=== PATIENT | male | born 1960 | race Caucasian/White ===

== ENCOUNTER 2021-07-12 10:26 | Inpatient (IN) | payer MEDICAID, OTHER ==
[~2021-07-12] VITALS: Ht 167.6 cm; Wt 83.9 kg
[2021-07-12] MEDS ORDERED: ACETAMINOPHEN 325MG TABLET PO STA (10:54)
[2021-07-12] MEDS ORDERED: VANCOMYCIN 1G PREMIX 200 ML IV ONE (11:00)
[2021-07-12] MEDS ORDERED: PIPERACILLIN/TAZ 3.375G PREMIX 50 ML IV ONE (11:00)
[2021-07-12] MEDS ORDERED: SODIUM CHLORIDE 0.9% 1000ML BAG (SEPSIS BOLUS) IV ONE (11:00)
[2021-07-12 11:33] LABS: BASOPHILS % 0.5 % (0.0-2.0); EOSINOPHILS % 1.5 % (0.0-5.0); HEMATOCRIT. 28.6 % (42.0-52.0); HEMOGLOBIN. 8.5 g/dL (14.0-18.0); LYMPHOCYTES % 9.1 % (20.0-50.0); MEAN CORPUSCULAR HEMOGLOBIN 27.7 pg (28.0-32.0); MEAN CORPUSCULAR VOLUME 92.9 fL (80.0-94.0); MEAN PLATELET VOLUME 7.5 fl (7.4-10.4); MONOCYTES % 5.7 % (2.0-8.0); NEUTROPHILS % 83.2 % (40.0-76.0); PLATELET 451 x1000/uL (130-400); RED BLOOD CELL COUNT 3.08 mill/uL (4.7-6.1); RED CELL DISTRIBUTION WIDTH 16.6 % (11.6-14.6)
[2021-07-12 11:42] LABS: INR 1.1; PROTHROMBIN TIME 11.5 sec (9.6-11.0)
[2021-07-12 11:47] LABS: CHLORIDE 103 mEq/L (98-107)
[2021-07-12] MEDS ORDERED: HYDROCODONE/ACETAMINOPHEN 5/325MG TABLET PO PRN (14:15)
[2021-07-12] MEDS ORDERED: ACETAMINOPHEN 325MG TABLET PO PRN ×2 (14:15)
[2021-07-12] MEDS ORDERED: ONDANSETRON HCL 4MG/2ML INJ IV PRN (14:15)
[2021-07-12] MEDS ORDERED: GUAIFENESIN 200MG/10ML SUGAR FREE UDC PO PRN (14:15)
[2021-07-12] MEDS ORDERED: MAGNESIUM/ALUMINUM HYDROXIDE/SIMETHICONE 30ML UDC PO PRN (14:15)
[2021-07-12] MEDS ORDERED: NALOXONE HCL 0.4MG/ML VIAL IV PRN (14:30)
[2021-07-12] MEDS ORDERED: VANCOMYCIN 1G PREMIX 200 ML IV NR (15:00)
[2021-07-12] MEDS: ENOXAPARIN 30MG/0.3ML SYR SUBCUT SCH (15:04)
[2021-07-12 16:11] LABS: HEPATITIS B SURFACE ANTIGEN NEGATIVE
[2021-07-12 16:40] VITALS: BP 126/66
[2021-07-12 19:23] VITALS: BP 126/66
[2021-07-12 20:00] VITALS: BP 142/78
[2021-07-12] MEDS ORDERED: VANCOMYCIN 750MG PMX (XELLIA) 150 ML IV NR (20:00)
[2021-07-12] MEDS ORDERED: PIPERACILLIN/TAZOBACTAM 2.25 G in DEXTROSE 5% WATER 50 ML IV SCH (21:00)
[2021-07-12] MEDS ORDERED: PIPERACILLIN/TAZOBACTAM 3.375 G in DEXTROSE 5% WATER 50 ML IV SCH (21:00)
[2021-07-12] MEDS: PIPERACILLIN/TAZOBACTAM 3.375 G in DEXTROSE 5% WATER 50 ML IV SCH (21:12)
[2021-07-13] VITALS: BP 139/72
[2021-07-13 04:00] VITALS: BP 119/59
[2021-07-13 08:00] VITALS: BP 125/66
[2021-07-13 08:45] LABS: BASOPHILS % 0.5 % (0.0-2.0); EOSINOPHILS % 2.7 % (0.0-5.0); HEMATOCRIT. 25.3 % (42.0-52.0); HEMOGLOBIN. 7.9 g/dL (14.0-18.0); LYMPHOCYTES % 8.1 % (20.0-50.0); MEAN CORPUSCULAR HEMOGLOBIN 28.4 pg (28.0-32.0); MEAN PLATELET VOLUME 7.3 fl (7.4-10.4); MONOCYTES % 6.2 % (2.0-8.0); NEUTROPHILS % 82.5 % (40.0-76.0); PLATELET 445 x1000/uL (130-400); RED BLOOD CELL COUNT 2.78 mill/uL (4.7-6.1); RED CELL DISTRIBUTION WIDTH 16.6 % (11.6-14.6)
[2021-07-13] MEDS: PIPERACILLIN/TAZOBACTAM 3.375 G in DEXTROSE 5% WATER 50 ML IV SCH ×2 (11:13→21:27)
[2021-07-13 12:00] VITALS: BP 118/62
[2021-07-13] MEDS: ENOXAPARIN 30MG/0.3ML SYR SUBCUT SCH (14:35)
[2021-07-13 16:00] VITALS: BP 114/52
[2021-07-13 20:00] VITALS: BP 141/68
[2021-07-13] MEDS: EPOETIN ALFA-EPBX 10,000 UNIT/ML VIAL SUBCUT SCH (21:28)
[2021-07-14] VITALS: BP 138/62
[2021-07-14 08:00] VITALS: BP 122/60
[2021-07-14 08:00] LABS: BASOPHILS % 0.5 % (0.0-2.0); EOSINOPHILS % 2.3 % (0.0-5.0); HEMATOCRIT. 25.2 % (42.0-52.0); HEMOGLOBIN. 7.6 g/dL (14.0-18.0); LYMPHOCYTES % 9.1 % (20.0-50.0); MEAN CORPUSCULAR HEMOGLOBIN 27.7 pg (28.0-32.0); MEAN CORPUSCULAR VOLUME 92.2 fL (80.0-94.0); MEAN PLATELET VOLUME 7.1 fl (7.4-10.4); MONOCYTES % 6.8 % (2.0-8.0); NEUTROPHILS % 81.3 % (40.0-76.0); PLATELET 425 x1000/uL (130-400); RED BLOOD CELL COUNT 2.73 mill/uL (4.7-6.1); RED CELL DISTRIBUTION WIDTH 16.3 % (11.6-14.6)
[2021-07-14 08:14] LABS: PHOSPHORUS 5.6 mg/dL (2.5-4.9)
[2021-07-14] MEDS: PIPERACILLIN/TAZOBACTAM 3.375 G in DEXTROSE 5% WATER 50 ML IV SCH ×2 (09:44→22:52)
[2021-07-14 12:00] VITALS: BP 137/71
[2021-07-14] MEDS: ENOXAPARIN 30MG/0.3ML SYR SUBCUT SCH (15:00)
[2021-07-14 16:00] VITALS: BP 129/50
[2021-07-14 20:00] VITALS: BP 117/46
[2021-07-15] VITALS: BP 120/52
[2021-07-15 04:00] VITALS: BP 122/52
[2021-07-15] MEDS ORDERED: LIDOCAINE HCL 1% 20ML VIAL (Pyxis) INJ ONE (06:53)
[2021-07-15] MEDS ORDERED: POLYMYXIN B SULFATE 500000 UNITS/VIAL ONE (06:53)
[2021-07-15] MEDS ORDERED: BACITRACIN 15GM TUBE TOP ONE (06:54)
[2021-07-15] MEDS ORDERED: BUPIVACAINE HCL/PF 0.5% (5MG/ML) 10ML ONE (06:54)
[2021-07-15] MEDS ORDERED: GENTAMICIN SULF 40MG/ML 2ML VIAL ONE (06:54)
[2021-07-15 07:57] LABS: BASOPHILS % 0.7 % (0.0-2.0); EOSINOPHILS % 3.2 % (0.0-5.0); HEMATOCRIT. 26.9 % (42.0-52.0); HEMOGLOBIN. 8.2 g/dL (14.0-18.0); LYMPHOCYTES % 11.8 % (20.0-50.0); MEAN CORPUSCULAR HEMOGLOBIN 27.8 pg (28.0-32.0); MEAN CORPUSCULAR VOLUME 91.7 fL (80.0-94.0); MONOCYTES % 8.3 % (2.0-8.0); PLATELET 401 x1000/uL (130-400); RED BLOOD CELL COUNT 2.94 mill/uL (4.7-6.1); RED CELL DISTRIBUTION WIDTH 16.6 % (11.6-14.6)
[2021-07-15 07:58] LABS: INR 1.1; PROTHROMBIN TIME 11.6 sec (9.6-11.0)
[2021-07-15 08:00] VITALS: BP 148/48
[2021-07-15 08:44] LABS: PHOSPHORUS 6.7 mg/dL (2.5-4.9)
[2021-07-15] MEDS: PIPERACILLIN/TAZOBACTAM 3.375 G in DEXTROSE 5% WATER 50 ML IV SCH ×2 (09:00→21:53)
[2021-07-15] MEDS ORDERED: HYDROMORPHONE HCL/PF 2MG/ML CPJ ONE (10:43)
[2021-07-15] MEDS ORDERED: MIDAZOLAM HCL 5 MG/5 ML VIAL ONE ×2 (10:44→11:09)
[2021-07-15] MEDS ORDERED: CLINDAMYCIN 900 MG PREMIX 50 ML IV ONE (11:07)
[2021-07-15 13:29] LABS: HEMATOCRIT 24.1 % (42.0-52.0)
[2021-07-15 13:47] LABS: HEMOGLOBIN 6.6 g/dL (14.0-18.0)
[2021-07-15] MEDS: ENOXAPARIN 30MG/0.3ML SYR SUBCUT SCH (15:00)
[2021-07-15 20:00] VITALS: BP 133/66
[2021-07-15 20:44] LABS: HEMATOCRIT 26.7 % (42.0-52.0); HEMOGLOBIN 8.3 g/dL (14.0-18.0)
[2021-07-16] VITALS: BP 135/72
[2021-07-16 08:00] VITALS: BP 142/75
[2021-07-16] MEDS: PIPERACILLIN/TAZOBACTAM 3.375 G in DEXTROSE 5% WATER 50 ML IV SCH ×2 (10:06→22:33)
[2021-07-16 12:00] VITALS: BP 123/64
[2021-07-16] MEDS: ENOXAPARIN 30MG/0.3ML SYR SUBCUT SCH (15:37)
[2021-07-16 16:00] VITALS: BP 111/92
[2021-07-16] MEDS ORDERED: VANCOMYCIN 750 MG in DEXT 5% WATER 250 ML IV NR (18:00)
[2021-07-16 20:00] VITALS: BP_SYST 110; BP_SYST 143; BP_DIAS 35; BP_DIAS 51
[2021-07-16] MEDS: EPOETIN ALFA-EPBX 10,000 UNIT/ML VIAL SUBCUT SCH (22:32)
[2021-07-16] MEDS: CEFTRIAXONE 1,000 MG in DEXTROSE 5% WATER 50 ML IV SCH (23:44)
[2021-07-17] VITALS: BP 110/51
[2021-07-17 04:00] VITALS: BP 141/78
[2021-07-17 08:00] VITALS: BP 133/56
[2021-07-17 11:59] LABS: BASOPHILS % 0.8 % (0.0-2.0); EOSINOPHILS % 5.7 % (0.0-5.0); HEMATOCRIT. 24.8 % (42.0-52.0); HEMOGLOBIN. 7.8 g/dL (14.0-18.0); LYMPHOCYTES % 16.7 % (20.0-50.0); MEAN CORPUSCULAR HEMOGLOBIN 27.8 pg (28.0-32.0); MEAN CORPUSCULAR VOLUME 88.2 fL (80.0-94.0); MEAN PLATELET VOLUME 7.1 fl (7.4-10.4); MONOCYTES % 6.3 % (2.0-8.0); NEUTROPHILS % 70.5 % (40.0-76.0); PLATELET 400 x1000/uL (130-400); RED BLOOD CELL COUNT 2.81 mill/uL (4.7-6.1); RED CELL DISTRIBUTION WIDTH 17.5 % (11.6-14.6)
[2021-07-17 12:00] VITALS: BP 136/43
[2021-07-17 16:00] VITALS: BP 144/48
[2021-07-17] MEDS: ENOXAPARIN 30MG/0.3ML SYR SUBCUT SCH (16:24)
[2021-07-17 16:40] LABS: HEPATITIS B SURFACE ANTIGEN NEGATIVE
[2021-07-17 20:00] VITALS: BP 150/47
[2021-07-17] MEDS: CEFTRIAXONE 1,000 MG in DEXTROSE 5% WATER 50 ML IV SCH (22:42)
[2021-07-18] VITALS: BP 132/69
[2021-07-18 04:00] VITALS: BP 138/74
[2021-07-18 08:00] VITALS: BP 160/86
[2021-07-18 12:00] VITALS: BP 150/90
[2021-07-18] MEDS ORDERED: VANCOMYCIN 750MG PMX (XELLIA) 150 ML IV NR (12:00)
[2021-07-18] MEDS ORDERED: VANCOMYCIN 750 MG in DEXT 5% WATER 250 ML IV NR (12:00)
[2021-07-18] MEDS ORDERED: VANCOMYCIN 750MG PREMIX 150 ML IV NR (12:27)
[2021-07-18] MEDS: ENOXAPARIN 30MG/0.3ML SYR SUBCUT SCH (15:11)
[2021-07-18 16:00] VITALS: BP 141/79
[2021-07-18 20:00] VITALS: BP 112/51
[2021-07-18] MEDS: CEFTRIAXONE 1,000 MG in DEXTROSE 5% WATER 50 ML IV SCH (22:51)
[2021-07-18] MEDS: EPOETIN ALFA-EPBX 10,000 UNIT/ML VIAL SUBCUT SCH (22:51)
[2021-07-19] VITALS: BP 163/88
[2021-07-19 04:00] VITALS: BP 141/69
[2021-07-19 07:35] LABS: BASOPHILS % 0.6 % (0.0-2.0); EOSINOPHILS % 7.1 % (0.0-5.0); HEMATOCRIT. 25.6 % (42.0-52.0); MEAN CORPUSCULAR HEMOGLOBIN 27.9 pg (28.0-32.0); MEAN CORPUSCULAR VOLUME 89.8 fL (80.0-94.0); MONOCYTES % 7.7 % (2.0-8.0); NEUTROPHILS % 66.6 % (40.0-76.0); PLATELET 434 x1000/uL (130-400); RED BLOOD CELL COUNT 2.86 mill/uL (4.7-6.1); RED CELL DISTRIBUTION WIDTH 17.6 % (11.6-14.6)
[2021-07-19 08:00] VITALS: BP 143/50
[2021-07-19 12:00] VITALS: BP 122/84
[2021-07-19] MEDS: ENOXAPARIN 30MG/0.3ML SYR SUBCUT SCH (15:13)
[2021-07-19 16:00] VITALS: BP 149/74
[2021-07-19 20:00] VITALS: BP 154/88
[2021-07-19] MEDS: CEFTRIAXONE 1,000 MG in DEXTROSE 5% WATER 50 ML IV SCH (23:46)
[2021-07-20] VITALS: BP 155/95
[2021-07-20 04:00] VITALS: BP 145/92
[2021-07-20 07:43] LABS: BASOPHILS % 1.2 % (0.0-2.0); EOSINOPHILS % 7.3 % (0.0-5.0); HEMATOCRIT. 23.4 % (42.0-52.0); HEMOGLOBIN. 7.4 g/dL (14.0-18.0); LYMPHOCYTES % 18.8 % (20.0-50.0); MEAN CORPUSCULAR HEMOGLOBIN 28.3 pg (28.0-32.0); MEAN CORPUSCULAR VOLUME 89.1 fL (80.0-94.0); MEAN PLATELET VOLUME 6.6 fl (7.4-10.4); MONOCYTES % 6.2 % (2.0-8.0); NEUTROPHILS % 66.5 % (40.0-76.0); PLATELET 420 x1000/uL (130-400); RED BLOOD CELL COUNT 2.63 mill/uL (4.7-6.1); RED CELL DISTRIBUTION WIDTH 17.4 % (11.6-14.6)
[2021-07-20 08:00] VITALS: BP 121/34
[2021-07-20 09:23] LABS: PHOSPHORUS 8.2 mg/dL (2.5-4.9)
[2021-07-20 12:00] VITALS: BP 157/85
[2021-07-20 16:00] VITALS: BP 162/76
[2021-07-20 16:42] LABS: HEPATITIS B SURFACE ANTIGEN NEGATIVE
[2021-07-20] MEDS: ENOXAPARIN 30MG/0.3ML SYR SUBCUT SCH (16:43)
[2021-07-20] MEDS: EPOETIN ALFA 10000UNITS/ML VIAL SUBCUT SCH (21:58)
[2021-07-20] MEDS: CEFTRIAXONE 1,000 MG in DEXTROSE 5% WATER 50 ML IV SCH (23:22)
[2021-07-21] VITALS: BP 122/58
[2021-07-21 04:00] VITALS: BP 166/91
[2021-07-21 08:00] VITALS: BP 153/71
[2021-07-21 10:25] LABS: HEMATOCRIT. 26.5 % (42.0-52.0); HEMOGLOBIN. 8.2 g/dL (14.0-18.0); LYMPHOCYTES % 18.9 % (20.0-50.0); MEAN CORPUSCULAR HEMOGLOBIN 29.2 pg (28.0-32.0); MEAN CORPUSCULAR VOLUME 94.3 fL (80.0-94.0); MEAN PLATELET VOLUME 6.7 fl (7.4-10.4); MONOCYTES % 6.2 % (2.0-8.0); NEUTROPHILS % 66.9 % (40.0-76.0); PLATELET 347 x1000/uL (130-400)
[2021-07-21 10:50] LABS: PHOSPHORUS 6.8 mg/dL (2.5-4.9)
[2021-07-21 12:00] VITALS: BP 140/47
[2021-07-21] MEDS: ENOXAPARIN 30MG/0.3ML SYR SUBCUT SCH (15:42)
[2021-07-21 16:00] VITALS: BP 154/80
[2021-07-21] MEDS: CEFTRIAXONE 1,000 MG in DEXTROSE 5% WATER 50 ML IV SCH (22:31)
[2021-07-22] VITALS: BP 158/83
[2021-07-22 04:00] VITALS: BP 152/72
[2021-07-22 08:00] VITALS: BP 174/102
[2021-07-22] MEDS: CLONIDINE 0.1MG TABLET PO PRN (08:44)
[2021-07-22 12:00] VITALS: BP 142/98
[2021-07-22] MEDS: ENOXAPARIN 30MG/0.3ML SYR SUBCUT SCH ×3 (15:00→15:36)
[2021-07-22 16:50] VITALS: BP 134/66
[2021-07-22 20:00] VITALS: BP 166/92
[2021-07-23] VITALS: BP 169/85
[2021-07-23 04:00] VITALS: BP 160/80
[2021-07-23 05:33] LABS: BASOPHILS % 0.8 % (0.0-2.0); EOSINOPHILS % 7.6 % (0.0-5.0); HEMATOCRIT. 24.8 % (42.0-52.0); HEMOGLOBIN. 7.7 g/dL (14.0-18.0); LYMPHOCYTES % 21.6 % (20.0-50.0); MEAN CORPUSCULAR HEMOGLOBIN 27.7 pg (28.0-32.0); MEAN CORPUSCULAR VOLUME 89.8 fL (80.0-94.0); MEAN PLATELET VOLUME 6.9 fl (7.4-10.4); MONOCYTES % 6.4 % (2.0-8.0); NEUTROPHILS % 63.6 % (40.0-76.0); PLATELET 359 x1000/uL (130-400); RED BLOOD CELL COUNT 2.77 mill/uL (4.7-6.1); RED CELL DISTRIBUTION WIDTH 17.8 % (11.6-14.6)
[2021-07-23 08:00] VITALS: BP 160/90
[2021-07-23 12:00] VITALS: BP 160/89
[2021-07-23 16:00] VITALS: BP 153/83
[2021-07-23] MEDS: ENOXAPARIN 30MG/0.3ML SYR SUBCUT SCH (16:40)
[2021-07-23] MEDS: AMLODIPINE 2.5MG TABLET PO SCH (17:02)
[2021-07-23 20:00] VITALS: BP 141/75
[2021-07-23] MEDS: EPOETIN ALFA 10000UNITS/ML VIAL SUBCUT SCH (22:30)
[2021-07-23] MEDS: CLONIDINE 0.1MG TABLET PO PRN (23:49)
[2021-07-24] VITALS: BP 173/71
[2021-07-24 04:00] VITALS: BP 164/89
[2021-07-24 06:50] LABS: BASOPHILS % 0.9 % (0.0-2.0); EOSINOPHILS % 8.1 % (0.0-5.0); HEMATOCRIT. 25.5 % (42.0-52.0); LYMPHOCYTES % 22.4 % (20.0-50.0); MEAN CORPUSCULAR HEMOGLOBIN 28.4 pg (28.0-32.0); MEAN CORPUSCULAR VOLUME 90.1 fL (80.0-94.0); MEAN PLATELET VOLUME 6.9 fl (7.4-10.4); MONOCYTES % 8.3 % (2.0-8.0); NEUTROPHILS % 60.3 % (40.0-76.0); PLATELET 354 x1000/uL (130-400); RED BLOOD CELL COUNT 2.83 mill/uL (4.7-6.1); RED CELL DISTRIBUTION WIDTH 17.7 % (11.6-14.6)
[2021-07-24 08:00] VITALS: BP 142/73
[2021-07-24] MEDS: AMLODIPINE 2.5MG TABLET PO SCH (09:01)
[2021-07-24 12:00] VITALS: BP 124/57
[2021-07-24] MEDS ORDERED: AMLODIPINE 2.5MG TABLET PO NR (14:00)
[2021-07-24] MEDS: ENOXAPARIN 30MG/0.3ML SYR SUBCUT SCH (15:03)
[2021-07-24 16:00] VITALS: BP 139/71
[2021-07-24 20:00] VITALS: BP 168/86
[2021-07-24 20:27] LABS: HEPATITIS B SURFACE ANTIGEN NEGATIVE
[2021-07-24] MEDS: CLONIDINE 0.1MG TABLET PO PRN (23:37)
[2021-07-25] VITALS: BP 179/93
[2021-07-25 04:00] VITALS: BP 179/92
[2021-07-25] MEDS: CLONIDINE 0.1MG TABLET PO PRN (07:24)
[2021-07-25 08:00] VITALS: BP 167/90
[2021-07-25] MEDS: AMLODIPINE 5MG TABLET PO SCH (09:28)
[2021-07-25 12:00] VITALS: BP 129/78
[2021-07-25 16:00] VITALS: BP 114/53
[2021-07-25] MEDS: ENOXAPARIN 30MG/0.3ML SYR SUBCUT SCH (16:21)
[2021-07-25 20:00] VITALS: BP 105/40
[2021-07-25] MEDS: EPOETIN ALFA 10000UNITS/ML VIAL SUBCUT SCH (20:52)
[2021-07-26] VITALS: BP 126/61
[2021-07-26 08:00] VITALS: BP 135/94
[2021-07-26] MEDS: AMLODIPINE 5MG TABLET PO SCH (10:55)
[2021-07-26 12:00] VITALS: BP 156/83
[2021-07-26] MEDS: ENOXAPARIN 30MG/0.3ML SYR SUBCUT SCH (15:44)
[2021-07-26 16:00] VITALS: BP 128/59
[2021-07-26 20:00] VITALS: BP 129/66
[2021-07-27] VITALS: BP 136/68
[2021-07-27 04:00] VITALS: BP 131/56
[2021-07-27 08:00] VITALS: BP 154/89
[2021-07-27 08:22] LABS: BASOPHILS % 0.8 % (0.0-2.0); HEMATOCRIT. 27.1 % (42.0-52.0); HEMOGLOBIN. 8.5 g/dL (14.0-18.0); LYMPHOCYTES % 26.9 % (20.0-50.0); MEAN CORPUSCULAR HEMOGLOBIN 28.3 pg (28.0-32.0); MEAN CORPUSCULAR VOLUME 89.8 fL (80.0-94.0); MEAN PLATELET VOLUME 7.1 fl (7.4-10.4); MONOCYTES % 7.6 % (2.0-8.0); NEUTROPHILS % 56.7 % (40.0-76.0); PLATELET 302 x1000/uL (130-400); RED BLOOD CELL COUNT 3.01 mill/uL (4.7-6.1); RED CELL DISTRIBUTION WIDTH 17.3 % (11.6-14.6)
[2021-07-27] MEDS: AMLODIPINE 5MG TABLET PO SCH (08:36)
[2021-07-27 08:38] LABS: PHOSPHORUS 7.8 mg/dL (2.5-4.9)
[2021-07-27 12:00] VITALS: BP 137/74
[2021-07-27] MEDS: ENOXAPARIN 30MG/0.3ML SYR SUBCUT SCH (15:04)
[2021-07-27 16:00] VITALS: BP 144/64
[2021-07-27 20:00] VITALS: BP 143/77
[2021-07-27] MEDS ORDERED: EPOETIN ALFA 10000UNITS/ML VIAL SUBCUT SCH (21:00)
[2021-07-28] VITALS: BP 141/87
[2021-07-28 04:00] VITALS: BP 143/60
[2021-07-28 08:00] VITALS: BP 138/79
[2021-07-28] MEDS: AMLODIPINE 5MG TABLET PO SCH (09:00)
[2021-07-28 12:00] VITALS: BP 118/67
[2021-07-28] MEDS ORDERED: AMLO5TAB88 PO (12:31)
[2021-07-28] MEDS ORDERED: TOPUD PO (12:31)
[2021-07-28 16:00] VITALS: BP 131/68
[2021-07-28] MEDS: ENOXAPARIN 30MG/0.3ML SYR SUBCUT SCH (16:30)
[2021-07-28 20:00] VITALS: BP 139/88
[2021-07-29 00:02] VITALS: BP 147/87
[2021-07-29 04:08] VITALS: BP 144/86
[2021-07-29 06:40] LABS: BASOPHILS % 0.9 % (0.0-2.0); EOSINOPHILS % 7.8 % (0.0-5.0); HEMATOCRIT. 28.2 % (42.0-52.0); HEMOGLOBIN. 8.9 g/dL (14.0-18.0); LYMPHOCYTES % 34.1 % (20.0-50.0); MEAN CORPUSCULAR VOLUME 88.5 fL (80.0-94.0); MEAN PLATELET VOLUME 7.3 fl (7.4-10.4); MONOCYTES % 7.4 % (2.0-8.0); NEUTROPHILS % 49.8 % (40.0-76.0); PLATELET 259 x1000/uL (130-400); RED BLOOD CELL COUNT 3.18 mill/uL (4.7-6.1); RED CELL DISTRIBUTION WIDTH 17.9 % (11.6-14.6)
[2021-07-29 08:00] VITALS: BP 154/80
[2021-07-29] MEDS: AMLODIPINE 5MG TABLET PO SCH (09:07)
[2021-07-29 12:00] VITALS: BP 150/76
[2021-07-29] MEDS: ENOXAPARIN 30MG/0.3ML SYR SUBCUT SCH (15:41)
[2021-07-29 20:00] VITALS: BP 163/86
[2021-07-29] MEDS: CLONIDINE 0.1MG TABLET PO PRN (20:38)
[2021-07-30] VITALS: BP 141/79
[2021-07-30 04:00] VITALS: BP 146/83
[2021-07-30 08:00] VITALS: BP 168/90
[2021-07-30] MEDS: AMLODIPINE 5MG TABLET PO SCH (08:59)
[2021-07-30 12:00] VITALS: BP 142/70
[2021-07-30 16:00] VITALS: BP 97/62
[2021-07-30 16:57] LABS: HEPATITIS B SURFACE ANTIGEN NEGATIVE
[2021-07-30] MEDS: ENOXAPARIN 30MG/0.3ML SYR SUBCUT SCH (17:37)
[2021-07-30 20:08] VITALS: BP 152/59
[2021-07-30] MEDS: EPOETIN ALFA-EPBX 10,000 UNIT/ML VIAL SUBCUT SCH (23:50)
[2021-07-31] MEDS: CLONIDINE 0.1MG TABLET PO PRN (01:22)
[2021-07-31 04:28] VITALS: BP 145/78
[2021-07-31 08:00] VITALS: BP 169/80
[2021-07-31] MEDS: AMLODIPINE 5MG TABLET PO SCH (08:55)
[2021-07-31 12:00] VITALS: BP 149/78
[2021-07-31] MEDS: ENOXAPARIN 30MG/0.3ML SYR SUBCUT SCH (14:41)
[2021-07-31] MEDS ORDERED: AMLO5TAB88 PO (14:44)
[2021-07-31] MEDS ORDERED: TOPUD PO (14:44)
[2021-07-31 16:00] VITALS: BP 129/67
[2021-07-31] MEDS ORDERED: AMLODIPINE 5MG TABLET PO SCH (17:00)
[2021-07-31 20:00] VITALS: BP 136/70
[2021-08-01] VITALS: BP 150/85
[2021-08-01 08:00] VITALS: BP 163/90
[2021-08-01] MEDS: AMLODIPINE 5MG TABLET PO SCH ×2 (08:58→23:59)
[2021-08-01 12:00] VITALS: BP 155/81
[2021-08-01] MEDS: ENOXAPARIN 30MG/0.3ML SYR SUBCUT SCH (15:00)
[2021-08-01 16:00] VITALS: BP 145/75
[2021-08-01 20:00] VITALS: BP 155/84
[2021-08-01 21:51] LABS: BASOPHILS % 0.9 % (0.0-2.0); EOSINOPHILS % 5.4 % (0.0-5.0); HEMOGLOBIN. 9.2 g/dL (14.0-18.0); LYMPHOCYTES % 16.5 % (20.0-50.0); MEAN CORPUSCULAR HEMOGLOBIN 28.3 pg (28.0-32.0); MEAN CORPUSCULAR VOLUME 89.4 fL (80.0-94.0); MEAN PLATELET VOLUME 7.6 fl (7.4-10.4); MONOCYTES % 4.4 % (2.0-8.0); NEUTROPHILS % 72.8 % (40.0-76.0); PLATELET 225 x1000/uL (130-400); RED BLOOD CELL COUNT 3.25 mill/uL (4.7-6.1); RED CELL DISTRIBUTION WIDTH 17.6 % (11.6-14.6)
[2021-08-01] MEDS: EPOETIN ALFA-EPBX 10,000 UNIT/ML VIAL SUBCUT SCH (23:50)
[2021-08-02] VITALS: BP 136/75
[2021-08-02 08:00] VITALS: BP 168/78
[2021-08-02] MEDS: AMLODIPINE 5MG TABLET PO SCH (08:56)
[2021-08-02 12:00] VITALS: BP 154/82
[2021-08-02] MEDS: ENOXAPARIN 30MG/0.3ML SYR SUBCUT SCH (15:00)
[2021-08-02 16:00] VITALS: BP 136/75
[2021-08-02 16:27] VITALS: BP 127/68
== END 2021-08-02 16:47 | disposition home or self-care (01) | DRG 710 ==
LOC: ER 10:26 → SUPCPDRO 14:01 → EDBEDREQ 15:42 → 6EST 15:45 → EDBEDREQSVC 15:46 → EDBEDREQ 15:46 → EDBEDREQTM 15:46
PROVIDERS: ADMIT Internal Medicine; ATTEND Internal Medicine
PROC: 5A1D70Z Performance of Urinary Filtration, Intermittent, Less than 6 Hours Per Day (ICD-10-PCS; 2021-07-13)
PROC: 0QBP0ZZ Excision of Left Metatarsal, Open Approach (ICD-10-PCS; principal; 2021-07-15)
PROC: 0Y6Q0Z0 Detachment at Left 1st Toe, Complete, Open Approach (ICD-10-PCS; 2021-07-15)
PROC: 30233N1 Transfusion of Nonautologous Red Blood Cells into Peripheral Vein, Percutaneous Approach (ICD-10-PCS; 2021-07-15)
PROC: 0Y6Y0Z0 Detachment at Left 5th Toe, Complete, Open Approach (ICD-10-PCS; 2021-07-15)
PROC: 0Y6W0Z0 Detachment at Left 4th Toe, Complete, Open Approach (ICD-10-PCS; 2021-07-15)
PROC: 0Y6U0Z0 Detachment at Left 3rd Toe, Complete, Open Approach (ICD-10-PCS; 2021-07-15)
PROC: 0Y6S0Z0 Detachment at Left 2nd Toe, Complete, Open Approach (ICD-10-PCS; 2021-07-15)
PROC: 0L9 Tendons, Drainage (ICD-10-PCS; 2021-07-15)
PROC: 5A1D70Z Performance of Urinary Filtration, Intermittent, Less than 6 Hours Per Day (ICD-10-PCS; 2021-07-16)
PROC: 5A1D70Z Performance of Urinary Filtration, Intermittent, Less than 6 Hours Per Day (ICD-10-PCS; 2021-07-18)
PROC: 5A1D70Z Performance of Urinary Filtration, Intermittent, Less than 6 Hours Per Day (ICD-10-PCS; 2021-07-20)
PROC: 5A1D70Z Performance of Urinary Filtration, Intermittent, Less than 6 Hours Per Day (ICD-10-PCS; 2021-07-23)
PROC: 5A1D70Z Performance of Urinary Filtration, Intermittent, Less than 6 Hours Per Day (ICD-10-PCS; 2021-07-25)
PROC: 5A1D70Z Performance of Urinary Filtration, Intermittent, Less than 6 Hours Per Day (ICD-10-PCS; 2021-07-27)
DX: A41.9 Sepsis, unspecified organism (principal); E43 Unspecified severe protein-calorie malnutrition; A48.0 Gas gangrene; E11.52 Type 2 diabetes mellitus with diabetic peripheral angiopathy with gangrene; I70.262 Atherosclerosis of native arteries of extremities with gangrene, left leg; I12.0 Hypertensive chronic kidney disease with stage 5 chronic kidney disease or end stage renal disease; D63.8 Anemia in other chronic diseases classified elsewhere; L03.116 Cellulitis of left lower limb; Z20.822 Contact with and (suspected) exposure to COVID-19; N18.6 End stage renal disease; L02.612 Cutaneous abscess of left foot; E11.621 Type 2 diabetes mellitus with foot ulcer; E11.65 Type 2 diabetes mellitus with hyperglycemia; E87.5 Hyperkalemia; E11.22 Type 2 diabetes mellitus with diabetic chronic kidney disease; M85.80 Other specified disorders of bone density and structure, unspecified site; M86.8X7 Other osteomyelitis, ankle and foot; J98.11 Atelectasis; L97.529 Non-pressure chronic ulcer of other part of left foot with unspecified severity; Z89.431 Acquired absence of right foot; Z99.2 Dependence on renal dialysis; Z83.3 Family history of diabetes mellitus; Z98.890 Other specified postprocedural states; Z79.84 Long term (current) use of oral hypoglycemic drugs; R94.4 Abnormal results of kidney function studies; Z68.29 Body mass index [BMI] 29.0-29.9, adult
CPT/HCPCS: 36415; 71045; 73630; 80048; 80053; 80202; 82728; 82962; 83036; 83540; 83550; 83605; 83735; 84100; 84145; 85014; 85018; 85025; 85049; 85384; 85651; 86140; 86705; 86709; 86803; 86850; 86900; 86920; 87070; 87075; 87077; 87186; 87340; 87426; 88305; 88311; 93005; 93923; 97022; 97161; 97164; 97166; 97535; 99291; J0696; J0885; J1170; J1580; J1650; J2250; J2543; J3370; J3490; J7030; J7060; P9016